=== PATIENT | male | born 1985 | race Two or more races ===

== ENCOUNTER 2024-04-06 10:46 | Inpatient (IN) | payer MEDICARE, OTHER ==
[~2024-04-06] VITALS: Ht 170.2 cm; Wt 101.1 kg
[2024-04-06 11:14] VITALS: PULSE 88; RESP 19; O2SAT 98
[2024-04-06] MEDS: chlordiazePOXIDE HCL 5 MG CAP PO ONE (11:30)
[2024-04-06] MEDS: THIAMINE 100mg/ml INJ (200mg/2ml VIAL) IV ONE (11:30)
[2024-04-06] MEDS: SODIUM CHLORIDE 0.9% 1,000 ML IV ONE ×2 (11:31)
[2024-04-06 11:32] LABS: Basophils # (auto) 0.1 10 ^3/uL (0-0.2); Basophils % (auto) 0.9 % (0.0-2.0); Eosinophils # (auto) 0.1 10 ^3/uL (0-0.8); Eosinophils % (auto) 0.7 % (0.0-7.0); Hematocrit 52.4 % (41.0-53.0); Hemoglobin 18.4 g/dL (13.5-17.5); Lymphocytes # (auto) 1.9 10 ^3/uL (0.4-5.4); Lymphocytes % (auto) 19.9 % (10.0-50.0); Mean Corpuscular Hemoglobin 34.7 pg (28.0-32.0); Mean Corpuscular Hgb Conc. 35.1 g/dL (32.0-36.0); Mean Corpuscular Volume 98.8 fL (80.0-100.0); Monocytes # (auto) 0.9 10 ^3/uL (0-1.3); Monocytes % (auto) 9.5 % (0.0-12.0); Neutrophils # (auto) 6.8 10 ^3/uL (1.6-8.6); Nucleated Red Blood Cells % 0.1 %; Platelet Count (auto) 411 10^3/uL (140-450); Red Blood Cells 5.31 10^6/uL (4.5-5.90); Red Cell Distribution Width 12.1 % (11.8-14.3); White Blood Cell 9.8 10^3/uL (4.4-10.8)
[2024-04-06 11:43] LABS: Chloride 107 mmol/L (98-107); Potassium 3.8 mmol/L (3.5-5.1); Sodium 138 mmol/L (136-145)
[2024-04-06 11:44] LABS: Anion Gap 12 (5-15); Carbon Dioxide 19 mmol/L (20-31)
[2024-04-06 11:49] LABS: Glucose 104 mg/dL (74-106)
[2024-04-06 11:50] LABS: Blood Alcohol < 3.0 mg/dL (<10)
[2024-04-06 11:57] LABS: BUN/Creatinine Ratio 7.6 (10.0-20.0); Blood Urea Nitrogen 8 mg/dL (9-23)
[2024-04-06] MEDS ORDERED: MORPHINE SULFATE INJ 2 MG/ml SYRG IV PRN (12:15)
[2024-04-06] MEDS ORDERED: ONDANSETRON HCL 4 MG/2 ML VIAL IV PRN (12:15)
[2024-04-06] MEDS ORDERED: LORazepam 2MG/ML-1ML VIAL IV PRN ×2 (12:15)
[2024-04-06] MEDS ORDERED: DOCUSATE SOD 100 MG CAP PO PRN (12:15)
[2024-04-06] MEDS ORDERED: NITROGLYCERIN 0.4 MG SL TAB SL PRN (13:00)
[2024-04-06] MEDS: SODIUM CHLORIDE 0.9% 1,000 ML IV SCH (13:31)
[2024-04-06] MEDS: chlordiazePOXIDE HCL 25 MG CAP PO SCH (13:36)
[2024-04-06 15:10] VITALS: PULSE 78; RESP 16; O2SAT 97
[2024-04-06 17:18] VITALS: BP 133/89; PULSE 77; RESP 16; TEMP 97.7; O2SAT 96
[2024-04-06 20:00] VITALS: RESP 18
[2024-04-06 21:00] VITALS: BP 134/83; PULSE 68; RESP 20; TEMP 97.9; O2SAT 95
[2024-04-07 01:00] VITALS: BP 125/80; PULSE 65; RESP 20; TEMP 98.1; O2SAT 96
[2024-04-07 05:00] VITALS: BP 126/82; PULSE 64; RESP 20; TEMP 98.1; O2SAT 97
[2024-04-07 06:43] LABS: Eosinophils # (auto) 0.2 10 ^3/uL (0-0.8); White Blood Cell 6.6 10^3/uL (4.4-10.8)
[2024-04-07 06:45] LABS: Basophils # (auto) 0.1 10 ^3/uL (0-0.2); Basophils % (auto) 1.3 % (0.0-2.0); Eosinophils % (auto) 2.4 % (0.0-7.0); Hematocrit 46.4 % (41.0-53.0); Hemoglobin 16.4 g/dL (13.5-17.5); Lymphocytes # (auto) 1.9 10 ^3/uL (0.4-5.4); Lymphocytes % (auto) 28.7 % (10.0-50.0); Mean Corpuscular Hemoglobin 34.9 pg (28.0-32.0); Mean Corpuscular Hgb Conc. 35.3 g/dL (32.0-36.0); Mean Corpuscular Volume 99.1 fL (80.0-100.0); Monocytes # (auto) 0.7 10 ^3/uL (0-1.3); Monocytes % (auto) 10.4 % (0.0-12.0); Neutrophils # (auto) 3.8 10 ^3/uL (1.6-8.6); Neutrophils % (auto) 57.2 % (37.0-80.0); Platelet Count (auto) 368 10^3/uL (140-450); Red Blood Cells 4.68 10^6/uL (4.5-5.90); Red Cell Distribution Width 11.9 % (11.8-14.3)
[2024-04-07 06:59] LABS: Alanine Aminotransferase 54 U/L (7-40); Albumin 4.5 g/dL (3.2-4.8); Alkaline Phosphatase 87 U/L (46-116); Anion Gap 6 (5-15); Aspartate Aminotransferase 37 U/L (13-40); BUN/Creatinine Ratio 8.5 (10.0-20.0); Blood Urea Nitrogen 9 mg/dL (9-23); Calcium 9.8 mg/dL (8.7-10.4); Carbon Dioxide 26 mmol/L (20-31); Chloride 109 mmol/L (98-107); Glucose 101 mg/dL (74-106); Potassium 4.2 mmol/L (3.5-5.1); Sodium 141 mmol/L (136-145)
[2024-04-07 07:00] LABS: Bilirubin, Total 0.8 mg/dL (0.2-1.0)
[2024-04-07 08:00] VITALS: PULSE 69; RESP 16; O2SAT 96
[2024-04-07] MEDS ORDERED: THIAMINE 100mg/ml INJ (200mg/2ml VIAL) IV ONE (08:15)
[2024-04-07] MEDS ORDERED: MORPHINE SULFATE INJ 2 MG/ml SYRG IV PRN (08:15)
[2024-04-07] MEDS ORDERED: ACETAMINOPHEN 500 MG TAB PO PRN (08:15)
[2024-04-07 08:43] LABS: INR 1.06 (0.9-1.15); Partial Thromboplastin Time 32.3 SEC (24.5-34.5); Prothrombin Time 11.2 sec (9.3-11.8)
[2024-04-07 09:13] VITALS: BP 142/88; PULSE 69; RESP 16; TEMP 98.2; O2SAT 96
[2024-04-07] MEDS ORDERED: chlordiazePOXIDE HCL 25 MG CAP PO SCH (10:00)
[2024-04-08] MEDS ORDERED: chlordiazePOXIDE HCL 25 MG CAP PO SCH (10:00)
[2024-04-08 11:23] LABS: Folate (Folic Acid) 32.61 ng/mL (>5.38)
[2024-04-09] MEDS ORDERED: chlordiazePOXIDE HCL 25 MG CAP PO SCH (07:00)
== END 2024-04-07 10:18 | disposition left against medical advice (07) | DRG 313 ==
LOC: ER 10:46 → OVERFLOW 12:54 → EAST 14:37
PROVIDERS: ADMIT Nurse Practitioner Family; ATTEND Nurse Practitioner Family
DX: R07.89 Other chest pain (principal); F10.130 Alcohol abuse with withdrawal, uncomplicated; F10.129 Alcohol abuse with intoxication, unspecified; F12.10 Cannabis abuse, uncomplicated; I10 Essential (primary) hypertension; Y90.9 Presence of alcohol in blood, level not specified; Z53.29 Procedure and treatment not carried out because of patient's decision for other reasons; Z91.148 Patient's other noncompliance with medication regimen for other reason
CPT/HCPCS: 36415; 71045; 80048; 80053; 80320; 82306; 82607; 82746; 83036; 84443; 84484; 85025; 85610; 85730; 99291; G0378